=== PATIENT | male | born 1995 | race African-American/Black ===

== ENCOUNTER 2016-08-01 05:25 | Emergency (ER) | payer SELFPAY ==
[~2016-08-01 05:25] MED LIST: NO MEDICATIONS
== END 2016-08-01 05:33 | disposition home or self-care (01) ==
LOC: SED 05:25
DX: K02.9 Dental caries, unspecified (principal); R03.0 Elevated blood-pressure reading, without diagnosis of hypertension
CPT/HCPCS: 99283